=== PATIENT | male | born 1975 ===

== ENCOUNTER 2018-01-20 22:27 | Emergency (ER) | payer OTHER ==
[2018-01-20 22:49] VITALS: RESP 20; TEMP 97.8; O2SAT 97
[2018-01-20] MEDS ORDERED: TETRACAINE/BENZOCAINE/BUTAMBEN 200 SPRAY ONE (22:57)
[2018-01-20] MEDS ORDERED: AMOXICILLIN 125/5 ML BOTTLE ONE (23:11)
[2018-01-20] MEDS ORDERED: AMOXICILLIN 250 MG CAP PO ONE (23:11)
[2018-01-20 23:46] VITALS: BP 141/94; PULSE 71
[2018-01-20] MEDS ORDERED: AMOXICILLIN 125/5 ML BOTTLE PO ONE (23:46)
[2018-01-21] MEDS ORDERED: TETRACAINE/BENZOCAINE/BUTAMBEN 200 SPRAY TP ONE (00:04)
== END 2018-01-20 23:25 | disposition home or self-care (01) ==
LOC: ED 22:27
DX: K02.9 Dental caries, unspecified (principal)
CPT/HCPCS: 99282; A9270-GY